=== PATIENT | male | born 1955 | race Caucasian/White ===

== ENCOUNTER 2018-05-29 13:46 | Inpatient (IN) | payer OTHER ==
[2018-05-28 17:29] VITALS: Ht 170.2 cm; Wt 65.9 kg
[2018-05-29] VITALS (17 sets, daily range): BP systolic 102–131; BP diastolic 53–82; PULSE 88–117; RESP 16–23
[~2018-05-29] VITALS: Ht 170.2 cm; Wt 65.9 kg
[2018-05-29] MEDS ORDERED: LISI1TAB8 PO (14:19)
--- NOTE | 2018-05-29 16:14 | PREAC ---
Date/Time of Note Date/Time of Note DATE: 05/29/18 TIME: 16:13 Anesthesia Eval and Record Evaluation Time Pre-Procedure Interview DATE: 05/29/18 TIME: 16:13 Age 63 Sex male NPO: 8 hrs Preoperative diagnosis left calcaneus fx Planned procedure orif left calcaneus Past Medical History Past Medical History: Includes Cardio: HTN Surgery & Anesthesia Issues No known issue Meds Anticoagulation: No Beta Fabby within 24 hr: No Reason Beta Fabby not given: Pt. not on B-Fabby Reported Medications Lisinopril/Hydrochlorothiazide (Lisinopril-Hctz 20-25 mg Tab) 1 Each Tablet, 1 EACH PO DAILY, TAB 05/29/18 Meds reviewed: Yes Allergies Coded Allergies: No Known Allergy (Unverified , 05/29/18) Allergies Reviewed: Yes Labs/Studies Labs Reviewed: Reviewed by anesthesiologist test: N/A Studies: ECG, CXR Pre-procedure Exam Last vitals Vital Signs Date Temp Pulse Resp B/P (MAP) Pulse Ox O2 O2 Flow FiO2 Time Delivery Rate 05/29/18 98.3 96 16 107/64 100 Room Air 15:20 (78) Airway: Adequate mouth opening, Adequate thyromental dist Mallampati: Mallampati I Teeth: Normal Lung: Normal Heart: Normal ASA Physical Status ASA physical status: 2 Emergency: None Planned Anesthetic General/MAC: LMA Nerve block: Sciatic (left) Planned Pain Management Single shot nerve block, Parenteral pain med Pre-operative Attestations Prior to commencing anesthesia and surgery, the patient was re-evaluated, there was verification of: *The patient's identity *The results of appropriate recent lab work and preoperative vital signs *The above evaluation not changing prior to induction *Anesthetic plan, risk benefits, alternative and complications discussed with patient/family; questions answered; patient/family understands, accepts and wishes to proceed. MARIELY DHILLON May 29, 2018 16:14
[2018-05-29] MEDS ORDERED: BUPIVACAINE 0.5% (SDV) 30 ML INJ ONE (16:16)
[2018-05-29] MEDS ORDERED: LIDOCAINE 2% (SDV) 5 ML INJ ONE (16:18)
[2018-05-29] MEDS ORDERED: MIDAZOLAM 1 MG/ML 2 ML INJ ONE (16:20)
[2018-05-29] MEDS ORDERED: ROPIVACAINE 0.5 % 30 ML VIAL ONE (16:21)
[2018-05-29] MEDS ORDERED: POLYMYXIN/BACITRACIN 1L IRRIG ONE ×2 (17:03→18:09)
[2018-05-29] MEDS ORDERED: CEFAZOLIN 1 GM INJ ONE (17:19)
[2018-05-29] MEDS ORDERED: PHENYLephrine (100 MCG/ML) 5ML SYG ONE (17:22)
[2018-05-29] MEDS ORDERED: NEOMYC/POLYMYX/BACIT 30 GM OINT ONE (18:09)
[2018-05-29] MEDS ORDERED: DEXAMETHASONE 4 MG/ML 5 ML INJ ONE (20:10)
[2018-05-29] MEDS ORDERED: ONDANSETRON 4 MG INJ ONE (20:10)
[2018-05-29] MEDS ORDERED: PROPOFOL 20 ML ONE (20:10)
[2018-05-29] MEDS ORDERED: KETOROLAC 30 MG INJ ONE (20:17)
--- NOTE | 2018-05-29 21:11 | PAC ---
Date/Time of Note Date/Time of Note DATE: 05/29/18 TIME: 21:10 Post-Anesthesia Notes Post-Anesthesia Note Last documented vital signs Vital Signs Date Temp Pulse Resp B/P (MAP) Pulse Ox O2 O2 Flow FiO2 Time Delivery Rate 05/29/18 98.3 96 16 107/64 100 Room Air 2110 (78) Activity: WNL Respiratory function: WNL Cardiovascular function: WNL Mental status: Baseline Pain reasonably controlled: Yes Hydration appropriate: Yes Nausea/Vomiting absent: Yes MARIELY DHILLON May 29, 2018 21:10
--- NOTE | 2018-05-29 21:20 | HPN ---
Date/Time of Note Date/Time of Note DATE: 05/29/18 TIME: 21:20 Interval H&P Admission Note Pt. seen H&P reviewed: No system changes JOANNA MCLEAN MD May 29, 2018 21:20
[2018-05-29] MEDS ORDERED: CEFAZOLIN 1 GM INJ IV SCH (21:30)
[2018-05-29] MEDS ORDERED: MEPERIDINE 25 MG INJ IV PRN (21:30)
[2018-05-29] MEDS ORDERED: MIDAZOLAM 1 MG/ML 2 ML INJ IV PRN (21:30)
[2018-05-29] MEDS ORDERED: DIPHENHYDRAMINE 50 MG INJ IV PRN (21:30)
[2018-05-29] MEDS ORDERED: HYDROmorphONE 1 MG/ML SYG IV PRN (21:30)
[2018-05-29] MEDS ORDERED: LABETALOL HCL 20MG INJ IV PRN (21:30)
[2018-05-29] MEDS ORDERED: ONDANSETRON 4 MG INJ IV PRN ×2 (21:30)
[2018-05-29] MEDS ORDERED: FENTAnyl 50 MCG/ML VIAL IV PRN ×3 (21:30)
[2018-05-29] MEDS ORDERED: oxyCODONE 5 MG TAB PO PRN (21:30)
[2018-05-29] MEDS ORDERED: MAGNESIUM HYDROXIDE 30ML CUP PO PRN (21:30)
[2018-05-29] MEDS ORDERED: DIPHENHYDRAMINE 25 MG CAP PO PRN (21:30)
[2018-05-29] MEDS ORDERED: HYDROmorphONE 1 MG/5 ML IV SYRINGE IV PRN ×3 (21:30)
[2018-05-29] MEDS ORDERED: hydrALAzine 20 MG INJ IV PRN (21:30)
[2018-05-29] MEDS ORDERED: METOCLOPRAMIDE 10 MG INJ IV PRN (21:30)
[2018-05-29] MEDS ORDERED: EPHEDrine SULFATE 50 MG/5 ML SYG IV PRN (21:30)
[2018-05-29] MEDS ORDERED: OXYCODONE/ACETAMINOPHEN (5/325) TAB PO PRN ×2 (21:30)
[2018-05-29] MEDS ORDERED: ALBUTEROL 0.083% (NEB) 2.5 MG/3 ML AMP HHN PRN (21:30)
[2018-05-29] MEDS ORDERED: ACETAMINOPHEN 500 MG TAB PO PRN ×2 (21:30)
[2018-05-29] MEDS ORDERED: KETOROLAC 30 MG INJ IV PRN (21:30)
[2018-05-30] VITALS (7 sets, daily range): BP systolic 106–121; BP diastolic 51–62; PULSE 95–115; RESP 18–20
[2018-05-30] MEDS: CEFAZOLIN 1 GM/50 ML (PMX) 50 ML IVPB SCH ×3 (00:55→17:00)
--- NOTE | 2018-05-30 04:15 | CONS ---
Assessment/Plan Assessment/Plan Assessment/Plan (Daily) 1. s/p left calcaneal ORIF -Pain management -Postop care and DVT prophylaxis per surgery 2. Hypertension: BP within goal. Continue home meds. Adjust as needed 3. Sinus tachycardia: We will give IV fluid. No associated hypoxia or other findings to suggest PE. monitor closely. Consultation Date/Type/Reason Admit Date/Time May 29, 2018 at 13:46 Date/Time of Note DATE: 05/30/18 TIME: 04:10 Hx of Present Illness This is a 63-year-old male with a history of hypertension who was admitted status post left calcaneal ORIF. Consult was placed for medical management. Except for occasional pain related to surgery, patient without complaints. Past Medical History Medical History: other (See HPI) Home Meds Reported Medications Lisinopril/Hydrochlorothiazide (Lisinopril-Hctz 20-25 mg Tab) 1 Each Tablet, 1 EACH PO DAILY, TAB 05/29/18 Medications Current Medications Senna/Docusate Sodium (Senokot-S) 1 tab BID PO ; Start 05/30/18 at 09:00 Simethicone (Mylicon) 80 mg TID PRN PO DISTENSION/GAS/BLOATING; Start 05/29/18 at 21:30 Magnesium Hydroxide (Milk Of Mag) 30 ml BID PRN PO CONSTIPATION; Start 05/29/18 at 21:30 Magnesium Hydroxide (Milk Of Mag) 30 ml HS PO ; Start 05/31/18 at 21:00 Acetaminophen (Tylenol Tab) 1,000 mg Q4H PRN PO PAIN LEVEL 1-5; Start 05/29/18 at 21:30 Acetaminophen (Tylenol Tab) 1,000 mg Q4H PRN PO ELEVATED TEMPERATURE; Start 05/29/18 at 21:30 Aspirin (Ecotrin) 325 mg DAILY PO ; Start 05/30/18 at 09:00 Ondansetron HCl (Zofran Inj) 4 mg Q4H PRN IV NAUSEA AND/OR VOMITING; Start 05/29/18 at 21:30 Diphenhydramine HCl (Benadryl) 25 mg Q4H PRN PO ITCHING; Start 05/29/18 at 21:30 Oxycodone HCl (Roxicodone) 5 mg Q4H PRN PO MODERATE PAIN LEVEL 4-6; Start 05/29/18 at 21:30 Hydromorphone HCl (Dilaudid) 1 mg Q3H PRN IV SEVERE PAIN LEVEL 7-10; Start 05/29/18 at 21:30 Gabapentin (Neurontin) 300 mg TID PO ; Start 05/30/18 at 09:00 Ascorbic Acid (Vitamin C) 1,000 mg DAILY PO ; Start 05/30/18 at 09:00 Cholecalciferol (Vitamin D) 10,000 unit DAILY PO ; Start 05/30/18 at 09:00 Cefazolin Sodium 50 ml @ 100 mls/hr Q8H IVPB Last administered on 05/30/18at 00:55; Admin Dose 100 MLS/HR; Start 05/30/18 at 01:00; Stop 05/31/18 at 17:29 Sodium Chloride 250 ml @ 250 mls/hr Q1H ONCE IV ; Start 05/30/18 at 04:30; Stop 05/30/18 at 05:29; Status UNV Allergies: Coded Allergies: No Known Allergy (Unverified , 05/29/18) Past Surgical History Past Surgical Hx: other (See HPI) Family History Significant Family History: no pertinent family hx Social History Alcohol Use: none Smoking Status: Never smoker Drug Use: none Exam/Review of Systems Exam Vitals Vital Signs Date Temp Pulse Resp B/P (MAP) Pulse Ox O2 O2 Flow FiO2 Time Delivery Rate 05/30/18 97.1 105 20 109/56 98 Room Air 02:00 (73) Intake and Output 05/29/18 05/29/18 05/30/18 1515:00 23:00 07:00 IntakeIntake Total 1400 ml OutputOutput Total 30 ml BalanceBalance 1370 ml Constitutional: other (No acute distress) Head: normocephalic, atraumatic Eyes: PERRL Respiratory: clear to auscultation Cardiovascular: other (Tachycardic regular rhythm) Gastrointestinal: soft Extremities: other (Left leg in a cast. Wound VAC in place) Medications Medication Current Medications Senna/Docusate Sodium (Senokot-S) 1 tab BID PO ; Start 05/30/18 at 09:00 Simethicone (Mylicon) 80 mg TID PRN PO DISTENSION/GAS/BLOATING; Start 05/29/18 at 21:30 Magnesium Hydroxide (Milk Of Mag) 30 ml BID PRN PO CONSTIPATION; Start 05/29/18 at 21:30 Magnesium Hydroxide (Milk Of Mag) 30 ml HS PO ; Start 05/31/18 at 21:00 Acetaminophen (Tylenol Tab) 1,000 mg Q4H PRN PO PAIN LEVEL 1-5; Start 05/29/18 at 21:30 Acetaminophen (Tylenol Tab) 1,000 mg Q4H PRN PO ELEVATED TEMPERATURE; Start 05/29/18 at 21:30 Aspirin (Ecotrin) 325 mg DAILY PO ; Start 05/30/18 at 09:00 Ondansetron HCl (Zofran Inj) 4 mg Q4H PRN IV NAUSEA AND/OR VOMITING; Start 05/29/18 at 21:30 Diphenhydramine HCl (Benadryl) 25 mg Q4H PRN PO ITCHING; Start 05/29/18 at 21:30 Oxycodone HCl (Roxicodone) 5 mg Q4H PRN PO MODERATE PAIN LEVEL 4-6; Start 05/29/18 at 21:30 Hydromorphone HCl (Dilaudid) 1 mg Q3H PRN IV SEVERE PAIN LEVEL 7-10; Start 05/29/18 at 21:30 Gabapentin (Neurontin) 300 mg TID PO ; Start 05/30/18 at 09:00 Ascorbic Acid (Vitamin C) 1,000 mg DAILY PO ; Start 05/30/18 at 09:00 Cholecalciferol (Vitamin D) 10,000 unit DAILY PO ; Start 05/30/18 at 09:00 Cefazolin Sodium 50 ml @ 100 mls/hr Q8H IVPB Last administered on 05/30/18at 00:55; Admin Dose 100 MLS/HR; Start 05/30/18 at 01:00; Stop 05/31/18 at 17:29 Sodium Chloride 250 ml @ 250 mls/hr Q1H ONCE IV ; Start 05/30/18 at 04:30; Stop 05/30/18 at 05:29; Status MIRELLA VITALE MD May 30, 2018 04:15
[2018-05-30] MEDS ORDERED: SOD CHLORIDE 0.9% 250 ML IV ONE (04:30)
[2018-05-30] MEDS ORDERED: CEPASTAT LOZENGE MT PRN (07:00)
--- NOTE | 2018-05-30 07:35 | OPR ---
DATE OF OPERATION: 05/29/2018 PREOPERATIVE DIAGNOSIS: Left Shetty IIIAB intraarticular calcaneal fracture. POSTOPERATIVE DIAGNOSIS: Left Shetty IIIAB intraarticular calcaneal fracture. OPERATION PERFORMED: 1. Left calcaneus open reduction and internal fixation with proximal tibia autograft and allograft. 2. Left proximal tibia autograft harvest. 3. Application of incisional wound VAC. 4. Application of a short leg splint. SURGEON: Charlie Mclean MD DEATH CLEARANCE COORDINATOR: None. ANESTHESIOLOGIST: Cyrus Fields MD ANESTHESIA: General with popliteal and adductor block. TOURNIQUET TIME: 125 minutes at 250 mmHg. COMPLICATIONS: None. IMPLANTS: Arthrex BoneSync cement, Arthrex calcaneal fracture plate system, Arthrex ArthroCell, canc ellous allograft chips, Arthrex Amnion, Prevena incisional wound VAC. INDICATIONS: The patient is a 63-year-old gentleman who sustained a left calcaneus fracture approxi mately 6 weeks ago. The patient had a significant delay in referral to an orthopedic surgeon, follow ed by an even more significant delay for authorization by his insurance company, further delaying his treatment for a total of 6 weeks. Given the significant displacement of the fracture, the patient i ndicated for surgical ORIF versus possible arthrodesis. The patient understood the risks and benefit s of surgery and explained that he is at a high risk of developing arthritis perhaps in the future; h owever, we did discuss trying to fix the fracture if the cartilage did have excellent evidence of int egrity. DRUG AND RISK NOTE: OPERATIVE NOTE: The patient was met in the preoperative holding area and the correct operative extre mity was marked and confirmed with both the patient and consent. The patient was brought to the oper ative theater and placed supine on the operative table, given preoperative antibiotics and preoperati ve anesthesia. The patient was then brought into the lateral decubitus position and prepped and drap ed in the normal sterile fashion. A timeout was taken and all parties in the room agreed this was th e correct patient, extremity and procedure. The tourniquet was inflated to 250 mmHg. An incision wa s made typical fashion over the fracture site. Care was taken to avoid any injury to the surrou nding and nearby structures and brought down to the fracture site where there was comminution seen in the lateral border of the lateral wall of the calcaneus, and there was a depressed and sunken articu lar fragment noted in the central anterior portion of the calcaneus fracture. The fracture was then tamped up to achieve improvement in Bohler's angle and improvement in the calcaneal height. Once the fracture was then tamped up and was shown on x-ray to have improvement in the fracture height, decis ion was made at this time to proceed with open reduction and internal fixation, given that the remain nina of the cartilage was intact. Attention was then turned to the proximal tibia, where using an [facility] [employer] bone graft harvester, autograft was then harvested and then mixed with both allograft and Arthrex ArthroCell. This was then packed with precise care into the bony defect underneath the depressed fr acture fragment to maintain the structural integrity of that fragment. The fracture was meticulously reduced and the bone void was meticulously followed by BoneSync cement to help create further stability of the fracture fragment. The Arthrex calcaneal fracture plate was then placed and shown t o be in the correct position both on AP and lateral and Nance axial view. Locking screws and cortic al screws were then placed, following removal of the cortical screws and locking screws. A final inc ision was made percutaneously over the plantar posterior aspect of the hindfoot with care to avoid in jury to the sural nerve and the final locking screws were then placed. X-rays were taken and noted t o be a well-reduced fracture with improvement of the calcaneal height both from the Nance axial and the lateral view. The wound was then irrigated and then amniotic membrane was placed over the fractu re site and then closed in layers with 2-0 Vicryl, followed by 3-0 Monocryl, followed by 3-0 nylon in a vertical mattress fashion. The wound was then dressed with a Prevena incisional wound VAC and the n the patient was placed in a well-padded short leg splint and brought to the PACU in stable conditio n. At the end of the case, all sponge and needle counts were correct. The patient's in the P ACU. The patient will be admitted for pain control and will begin aspirin 325 mg p.o. every day begi nning tomorrow and to be nonweightbearing for the next 6 to 8 weeks. MODIFIER 22 NOTE: Given the extensive length of time between the fracture and the surgical time, whi ch was due entirely to the delay in authorization by the insurance company in getting the patient aut horized to see both an orthopedic surgeon, as well as the incredible amount of delay of 3 weeks in im proving the surgical plan despite multiple attempts of getting the surgery approved sooner, the signi ficant delay in treatment caused an incredible amount of scar tissue formation, as well as healing of the fracture in a mal-reduced position. Thus, this made the case extensively more complex and chall enging to reduce correctly the fracture fragments in an improved position given the healing time in a mal-reduced position. This made the case at least another hour of time in order to improve the frac ture fragment and get proper reduction of the intraarticular fragments that were caused by the scar f ormation that had happened due to the delay in surgical authorization. Due to the significant comple xity of this case from the delay in surgery, the surgical case was more complex and required a greate r degree of skill and time in order to achieve adequate reduction and fixation. Thus, the case shoul d be rewarded a modifier 22 note. Dictated By: CHARLIE MCLEAN MD EIF/NTS Conf#: [id number] DID#: [id number]
[2018-05-30] MEDS: GABAPENTIN 300 MG CAP PO SCH ×2 (08:46→13:00)
[2018-05-30] MEDS ORDERED: ASCORBIC ACID 500 MG TAB PO SCH (09:00)
[2018-05-30] MEDS ORDERED: ASPIRIN (EC) 325 MG TAB PO SCH (09:00)
[2018-05-30] MEDS ORDERED: CHOLECALCIFEROL 2,000 UNIT CAP PO SCH (09:00)
[2018-05-30] MEDS ORDERED: SENNA/DOCUSATE NA (8.6MG/50MG) TAB PO SCH (09:00)
--- NOTE | 2018-05-30 14:11 | PN ---
Date/Time of Note Date/Time of Note DATE: 05/30/18 TIME: 14:11 Objective Vitals Vital Signs Date Temp Pulse Resp B/P (MAP) Pulse Ox O2 O2 Flow FiO2 Time Delivery Rate 05/30/18 98.5 95 18 121/60 96 07:19 (80) 05/30/18 Room Air 06:20 Intake and Output 05/29/18 05/29/18 05/30/18 1515:00 23:00 07:00 IntakeIntake Total 1400 ml 300 ml OutputOutput Total 30 ml 400 ml BalanceBalance 1370 ml -100 ml Results Result Diagram: 05/30/18 0441 05/30/18 0441 Medications Medications Current Medications Senna/Docusate Sodium (Senokot-S) 1 tab BID PO Last administered on 05/30/18at 08:46; Admin Dose 1 TAB; Start 05/30/18 at 09:00 Simethicone (Mylicon) 80 mg TID PRN PO DISTENSION/GAS/BLOATING; Start 05/29/18 at 21:30 Magnesium Hydroxide (Milk Of Mag) 30 ml BID PRN PO CONSTIPATION; Start 05/29/18 at 21:30 Magnesium Hydroxide (Milk Of Mag) 30 ml HS PO ; Start 05/31/18 at 21:00 Acetaminophen (Tylenol Tab) 1,000 mg Q4H PRN PO PAIN LEVEL 1-5; Start 05/29/18 at 21:30 Acetaminophen (Tylenol Tab) 1,000 mg Q4H PRN PO ELEVATED TEMPERATURE; Start 05/29/18 at 21:30 Aspirin (Ecotrin) 325 mg DAILY PO Last administered on 05/30/18at 08:53; Admin Dose 325 MG; Start 05/30/18 at 09:00 Ondansetron HCl (Zofran Inj) 4 mg Q4H PRN IV NAUSEA AND/OR VOMITING; Start 05/29/18 at 21:30 Diphenhydramine HCl (Benadryl) 25 mg Q4H PRN PO ITCHING; Start 05/29/18 at 21:30 Oxycodone HCl (Roxicodone) 5 mg Q4H PRN PO MODERATE PAIN LEVEL 4-6; Start 05/29/18 at 21:30 Hydromorphone HCl (Dilaudid) 1 mg Q3H PRN IV SEVERE PAIN LEVEL 7-10; Start 05/29/18 at 21:30 Gabapentin (Neurontin) 300 mg TID PO Last administered on 05/30/18 13:00; Admin Dose 300 MG; Start 05/30/18 at 09:00 Ascorbic Acid (Vitamin C) 1,000 mg DAILY PO Last administered on 05/30/18 08:47; Admin Dose 1,000 MG; Start 05/30/18 at 09:00 Cholecalciferol (Vitamin D) 10,000 unit DAILY PO Last administered on 05/30/18 08:47; Admin Dose 10,000 UNIT; Start 05/30/18 at 09:00 Cefazolin Sodium 50 ml @ 100 mls/hr Q8H IVPB Last administered on 05/30/18 08:47; Admin Dose 100 MLS/HR; Start 05/30/18 at 01:00; Stop 05/31/18 at 17:29 Phenol (Cepastat Lozenge) 1 lozenge Q1H PRN MT SORE THROAT Last administered on 05/30/18 06:52; Admin Dose 1 LOZENGE; Start 05/30/18 at 07:00 VTE Prophylaxis Risk score (from Ns)>0 risk: 9 SCD applied (from [facility] [place]): Yes Lines/Catheters IV Catheter Type: Patiño in Place: No Assessment/Plan Hospital Course Subjective Patient feeling well, no acute complaints except for surgical site pain Objective Physical exam General: Patient is laying in bed and answers questions appropriately Mentation: Patient is alert and oriented 4, Head: Normocephalic atraumatic Eyes: EOMI, pupils reactive to light Neck: Supple, nontender, midline Respiratory: Clear to auscultation bilaterally Cardiovascular: regular rate, no obvious murmurs Gastrointestinal: non-tender to palpation, bowel sounds heard. Neurological: Moves all extremities spontaneously Skin: Left foot surgical site bandaged, CDI Assessment and plan Left calcaneal ORIF -Orthopedic surgery to manage Hypertension -Continue home meds Sinus tachycardia -Resolving, a symptom medic, likely secondary to pain in foot, monitor. Disposition -Stable for discharge per internal medicine perspective, orthopedic surgery to manage discharge MARY ESTRADA May 30, 2018 14:11
--- NOTE | 2018-05-30 19:08 | PDOCDIS ---
Discharge Instructions CONDITION [id number] Patient Condition: [id number] Stable HOME CARE INSTRUCTIONS: [id number] Diet Instructions: [id number] Regular ACTIVITY: [id number] Activity Restrictions: [id number] Slowly Increase Activity Rest between Activity Avoid heavy lifting Do not Drive Do not operate Machinery Do not operate Power Tool Avoid Heavy Housework No Weight Bearing [id number] Bathing Restrictions: [id number] Tub Bath FOLLOW UP/APPOINTMENTS Follow-up Plan Please follow-up with your orthopedic surgeon as soon as possible. Please follow all instructions and take medications according to your orthopedic surgeon recommendations. MARY ESTRADA May 30, 2018 19:07
--- NOTE | 2018-05-30 19:10 | DS ---
Date/Time of Note Date/Time of Note DATE: 05/30/18 TIME: 19:10 Discharge Summary Admission/Discharge Info Admit Date/Time May 29, 2018 at 13:46 Discharge Date/Time Hospital Course Patient is a gentleman with a past medical history significant for hypertension who presents to [facility] for an elective left calcaneal repair. Patient received a left calcaneal ORIF per orthopedic surgeon however subsequently spent the night in the hospital just to monitor for patient's tachycardia. Patient had sinus tachycardia which spontaneously resolved and is very likely secondary to the pain in his surgical site. Patient feels well had no adverse symptoms and feels well enough to go home. Orthopedic surgery has already prescribed patient adequate medications for postsurgical care and also strict instructions for wound care which would include not to touch the dressing or wound until follow-up appointment which is in a few days. Patient was seen by physical therapy and cleared by physical therapy for discharge patient will be managed at home with crutches and his family to take care of him. Patient agreeable and will be discharged home Discharge diagnosis Left calcaneal ORIF Hypertension Sinus tachycardia, resolving Home Meds Reported Medications Lisinopril/Hydrochlorothiazide (Lisinopril-Hctz 20-25 mg Tab) 1 Each Tablet, 1 EACH PO DAILY, TAB 05/29/18 Follow-up Plan Please follow-up with your orthopedic surgeon as soon as possible. Please follow all instructions and take medications according to your orthopedic surgeon recommendations. Primary Care Provider Not On Staff Doctor Time spent on discharge: > 30 minutes Pending Labs Laboratory Tests Test 05/30/18 04:41 05/30/18 07:39 White Blood Count 11.7 10^3/ul (4.8-10.8) Red Blood Count 3.93 10^6/ul (4.70-6.10) Hemoglobin 11.9 g/dl (14.0-18.0) Hematocrit 35.7 % (42.0-52.0) Mean Corpuscular Volume 90.8 fl (82.0-101.0) Mean Corpuscular Hemoglobin 30.3 pg (29.0-33.0) Mean Corpuscular 33.3 g/dl (32.0-37.0) Hemoglobin Concent Red Cell Distribution Width 12.4 % (11.5-14.5) Platelet Count 261 10^3/UL (140-415) Mean Platelet Volume 9.9 fl (7.4-10.4) Immature Granulocytes % 0.500 % (0.001-0.429) Neutrophils % 90.0 % (39.0-77.0) Lymphocytes % 5.6 % (15.0-51.0) Monocytes % 3.8 % (0.0-11.0) Eosinophils % 0.0 % (0.0-7.0) Basophils % 0.1 % (0.0-2.0) Nucleated Red Blood Cells % 0.0 /100WBC (0.0-0.0) Immature Granulocytes # 0.060 10^3/ul (0.0-0.031) Neutrophils # 10.5 10^3/ul (1.6-7.5) Lymphocytes # 0.7 10^3/ul (0.8-2.9) Monocytes # 0.5 10^3/ul (0.3-0.9) Eosinophils # 0.0 10^3/ul (0.0-0.5) Basophils # 0.0 10^3/ul (0.0-0.1) Nucleated Red Blood Cells # 0.0 10^3/ul (0.0-0.0) Sodium Level 140 mmol/L (135-144) Potassium Level 4.9 mmol/L (3.5-5.1) Chloride Level 105 mmol/L (97-110) Carbon Dioxide Level 28 mmol/L (21-31) Anion Gap 7 (5-13) Blood Urea Nitrogen 31 mg/dl (7-20) Creatinine 1.24 mg/dl (0.61-1.24) Est Glomerular Filtrat 59 mL/min (>60) Rate mL/min Glucose Level 142 mg/dl (70-220) Calcium Level 9.5 mg/dl (8.4-10.2) Total Bilirubin 0.1 mg/dl (0.2-1.3) Direct Bilirubin 0.00 mg/dl (0.00-0.20) Indirect Bilirubin 0.1 mg/dl (0-1.1) Aspartate Amino 22 IU/L (15-46) Transf (AST/SGOT) Alanine 42 IU/L (13-69) Aminotransferase (ALT/SGPT) Alkaline Phosphatase 107 IU/L (42-121) Total Protein 6.5 g/dl (6.1-8.1) Albumin 3.7 g/dl (3.3-4.9) Globulin 2.80 g/dl (1.3-3.2) Albumin/Globulin Ratio 1.32 Lab Scanned Report REFERENCE LAB [id number] MARY ESTRADA May 30, 2018 19:10
[2018-05-31] MEDS ORDERED: MAGNESIUM HYDROXIDE 30ML CUP PO SCH (21:00)
== END 2018-05-30 18:55 | disposition home or self-care (01) | DRG 494 ==
LOC: REC 13:46 → EDSTATUS 16:30 → MS1 22:53
PROVIDERS: ADMIT Orthopaedic Surgery; ATTEND Orthopaedic Surgery
PROC: 0QBH0ZZ Excision of Left Tibia, Open Approach (ICD-10-PCS; 2018-05-29)
PROC: 0QUM0JZ Supplement Left Tarsal with Synthetic Substitute, Open Approach (ICD-10-PCS; 2018-05-29)
PROC: 0QUM07Z Supplement Left Tarsal with Autologous Tissue Substitute, Open Approach (ICD-10-PCS; 2018-05-29)
PROC: 0QSM04Z Reposition Left Tarsal with Internal Fixation Device, Open Approach (ICD-10-PCS; principal; 2018-05-29 16:30)
DX: S92.002A Unspecified fracture of left calcaneus, initial encounter for closed fracture (principal); I10 Essential (primary) hypertension; R00.0 Tachycardia, unspecified; X58.XXXA Exposure to other specified factors, initial encounter; Y93.9 Activity, unspecified; Y92.9 Unspecified place or not applicable; Y99.8 Other external cause status
CPT/HCPCS: 80053; 82306; 85025; 97116; 97161; 97530; C1762; J0690; J1100; J1885; J2250; J2370; J2405; J2795; J3010; J7040